=== PATIENT | female | born 1975 | race Caucasian/White ===

== ENCOUNTER 2021-05-26 14:37 | Emergency (ER) | payer OTHER ==
[~2021-05-26] VITALS: Ht 167.7 cm; Wt 124.4 kg
[2021-05-26 14:52] VITALS: BP 159/86
--- NOTE | 2021-05-26 14:59 | ED Back Pain ---
General Chief Complaint: Abdominal/GI Problems Stated Complaint: RIGHT SIDE ABDOMINAL PAIN History of Present Illness Date Seen by Provider: May 26, 2021 Time Seen by Provider: 14:50 Initial Comments 45-year-old female with sudden onset right low back pain about 1 hour prior to arrival. No abdominal pain, but nausea and vomiting associated with the pain. No recent illness, fever or chills. No diarrhea. No history of kidney stones. No urinary symptoms, increased frequency or dysuria. Allergies and Home Medications Allergies Coded Allergies: No Known Drug Allergies (Unverified , 05/26/21) Home Medications Ibuprofen 800 Mg Tablet, 800 MG PO Q8H PRN for PAIN Prescribed by: KARMA DYKES on 05/26/21 1545 Sulfamethoxazole/Trimethoprim 1 Each Tablet, 1 EACH PO BID Prescribed by: KARMA DYKES on 05/26/21 1545 Tamsulosin HCl 0.4 Mg Cap, 0.4 MG PO DAILY Prescribed by: KARMA DYKES on 05/26/21 1545 Patient Home Medication List Home Medication List Reviewed: Yes Review of Systems Constitutional: No fever, No malaise, No weakness Respiratory: No cough, No short of breath Cardiovascular: No chest pain, No edema, No palpitations Gastrointestinal: No abdominal pain, No diarrhea; nausea, vomiting Genitourinary: see HPI; No decreased output, No dysuria, No frequency, No hematuria, No hesitancy, No incontinence, No nocturia, No pain Musculoskeletal: back pain; No joint pain, No muscle pain, No neck pain Skin: No change in color, No lesions, No lumps, No rash Past Ydx[place]-G[place]nba-Awdfqn Hx Past Med/Social Hx: Reviewed Nursing Past Med/Soc Hx Physical Exam Vital Signs Vital Signs - First Documented 05/26/21 14:52 Temp 36.6 Pulse 83 Resp 18 B/P (MAP) 159/86 (110) Pulse Ox 98 O2 Delivery Room Air Capillary Refill : Height, Weight, BMI Height: '" Weight: lbs. oz. kg; BMI Method: General Appearance: No Apparent Distress, WD/WN Cardiovascular: Regular Rate, Rhythm, No Edema, No JVD Respiratory: Chest Non Tender, Lungs Clear, Normal Breath Sounds, No Accessory Muscle Use Gastrointestinal: Normal Bowel Sounds, Non Tender, Soft; No Distended, No Guarding, No Rebound, No Tenderness Back: CVA Tenderness (R), Muscle Spasm; No Vertebral Tenderness Extremity: Normal Capillary Refill, Non Tender Neurologic/Psychiatric: Alert, Oriented x3, No Motor/Sensory Deficits Progress/Results/Core Measures Results/Orders Lab Results Laboratory Tests Test 05/26/21 14:43 05/26/21 14:56 Range/Units Urine Color YELLOW Urine Clarity CLOUDY Urine pH 6.0 5-9 Urine Specific [place] 1.025 H 1.016-1.022 Urine Protein NEGATIVE NEGATIVE Urine Glucose (UA) NEGATIVE NEGATIVE Urine Ketones TRACE H NEGATIVE Urine Nitrite NEGATIVE NEGATIVE Urine Bilirubin NEGATIVE NEGATIVE Urine Urobilinogen 0.2 < = 1.0 MG/DL Urine Leukocyte Esterase 2+ H NEGATIVE Urine RBC (Auto) 3+ H NEGATIVE Urine RBC >100 H /HPF Urine WBC /HPF Urine Squamous Epithelial Cells 10-25 H /HPF Urine Crystals NONE /LPF Urine Bacteria MODERATE H /HPF Urine Casts NONE /LPF Urine Mucus NO /LPF Urine Culture Indicated YES White Blood Count 12.5 H 4.3-11.0 10^3/uL Red Blood Count 4.96 4.35-5.85 10^6/uL Hemoglobin 14.1 11.5-16.0 G/DL Hematocrit 42 35-52 % Mean Corpuscular Volume 85 80-99 FL Mean Corpuscular Hemoglobin 28 25-34 PG Mean Corpuscular Hemoglobin Concent 34 32-36 G/DL Red Cell Distribution Width 13.2 10.0-14.5 % Platelet Count 365 130-400 10^3/uL Mean Platelet Volume 10.0 7.4-10.4 FL Immature Granulocyte % (Auto) 0 % Neutrophils (%) (Auto) 79 H 42-75 % Lymphocytes (%) (Auto) 13 12-44 % Monocytes (%) (Auto) 6 0-12 % Eosinophils (%) (Auto) 1 0-10 % Basophils (%) (Auto) 1 0-10 % Neutrophils # (Auto) 9.8 H 1.8-7.8 X 10^3 Lymphocytes # (Auto) 1.7 1.0-4.0 X 10^3 Monocytes # (Auto) 0.8 0.0-1.0 X 10^3 Eosinophils # (Auto) 0.1 0.0-0.3 10^3/uL Basophils # (Auto) 0.1 0.0-0.1 10^3/uL Immature Granulocyte # (Auto) 0.1 0.0-0.1 10^3/uL Sodium Level 137 135-145 MMOL/L Potassium Level 4.2 3.6-5.0 MMOL/L Chloride Level 102 98-107 MMOL/L Carbon Dioxide Level 23 21-32 MMOL/L Anion Gap 12 5-14 MMOL/L Blood Urea Nitrogen 15 7-18 MG/DL Creatinine 0.95 0.60-1.30 MG/DL Estimat Glomerular Filtration Rate > 60 BUN/Creatinine Ratio 16 Glucose Level 132 H 70-105 MG/DL Calcium Level 9.6 8.5-10.1 MG/DL Corrected Calcium 9.2 8.5-10.1 MG/DL Total Bilirubin 0.4 0.1-1.0 MG/DL Aspartate Amino Transf (AST/SGOT) 15 5-34 U/L Alanine Aminotransferase (ALT/SGPT) 20 0-55 U/L Alkaline Phosphatase 108 40-136 U/L Total Protein 7.6 6.4-8.2 GM/DL Albumin 4.5 3.2-4.5 GM/DL My Orders Orders - ROVENSTKARMA LIMON DO Ed Iv/Invasive Line Start (05/26/21 14:55) Ct Abdomen/Pelvis Wo (05/26/21 14:55) Cbc With Automated Diff (05/26/21 14:55) Comprehensive Metabolic Panel (05/26/21 14:55) Urinalysis (05/26/21 14:55) Ketorolac Injection (Toradol Injection) (05/26/21 15:00) Ondansetron Injection (Zofran Injectio (05/26/21 15:00) Ns Iv 1000 Ml (Sodium Chloride 0.9%) (05/26/21 15:00) Urine Culture (05/26/21 14:43) Medications Given in ED Current Medications Medications Dose Ordered Sig/[place] Route Start Time Stop Time Status Last Admin Dose Admin Ketorolac Tromethamine 30 mg ONCE ONCE IVP 05/26/21 15:00 05/26/21 15:01 DC 05/26/21 15:05 30 MG Ondansetron HCl 4 mg ONCE ONCE IVP 05/26/21 15:00 05/26/21 15:01 DC 05/26/21 15:05 4 MG Vital Signs/I&O 05/26/21 14:52 Temp 36.6 Pulse 83 Resp 18 B/P (MAP) 159/86 (110) Pulse Ox 98 O2 Delivery Room Air Diagnostic Imaging Diagonstic Imaging: CT Comments HISTORY: R flank and CVA pain COMPARISON: CT abdomen and pelvis 09/23/2013. FINDINGS: Lung bases: The lung bases are clear. Solid organs: The liver is normal. The gallbladder is normal. There is no biliary ductal dilation. Pancreas is normal. Spleen is normal. Adrenal glands are normal. There is a 0.4 cm calculus within the distal right ureter at the ureterovesicular junction. This results in mild right hydronephrosis. The left kidney is unremarkable without hydronephrosis. Bowel: The stomach and small bowel are normal without obstruction. The colon and appendix are normal. Peritoneum: There is no intraperitoneal free fluid or free air. No suspicious lymphadenopathy. Vasculature: Normal without aneurysm. Musculoskeletal: Degenerative changes of the spine without suspicious osseous lesion or compression fracture. Pelvis: The uterus and adnexa are normal. The urinary bladder is normal. IMPRESSION: A 0.4 cm calculus within the distal right ureter at the ureterovesicular junction which results in mild right hydronephrosis. Dictated on workstation # [id number] Dict: 05/26/21 1524 Trans: 05/26/21 1527 [facility] [id number] Interpreted by: DENTON ALLRED DO Electronically signed by: Departure Impression Primary Impression: Ureterolithiasis Additional Impression: Hydronephrosis Qualified Codes: N13.2 - Hydronephrosis with renal and ureteral calculous obstruction Disposition: 01 HOME, SELF-CARE Condition: Improved Departure-Patient Inst. Decision time for Depature: 15:43 Referrals: HERRERA ELMORE MD (PCP/Family) Primary Care Physician SUZI JUDGE MD Patient Instructions: Kidney Stone Diet, Kidney Stone, Adult ED Add. Discharge Instructions: Call Dr Judge's office for follow up care in 1 to 2 days if not improving or worse. All discharge instructions reviewed with patient and/or family. Voiced understanding. Scripts Ibuprofen (Ibuprofen) 800 Mg Tablet 800 MG PO Q8H PRN for PAIN, #30 TAB 0 Refills Prov: KARMA DYKES DO 05/26/21 Tamsulosin HCl (Flomax) 0.4 Mg Cap 0.4 MG PO DAILY, #5 CAP Prov: KARMA DYKES DO 05/26/21 Sulfamethoxazole/Trimethoprim (Bactrim Ds Tablet) 1 Each Tablet 1 EACH PO BID, #10 TAB 0 Refills Prov: KARMA DYKES DO 05/26/21 KARMA DYKES DO May 26, 2021 14:59
[2021-05-26] MEDS ORDERED: NS IV 1000 ML 1,000 ML IV SCH (15:00)
[2021-05-26] MEDS ORDERED: KETOROLAC 30 MG/ML VIAL IVP ONE (15:00)
[2021-05-26] MEDS ORDERED: ONDANSETRON 4 MG/2 ML (SDV) Z0FRAN IVP ONE (15:00)
[2021-05-26 15:01] LABS: BILIRUBIN,URINE NEGATIVE (NEGATIVE); CLARITY,URINE CLOUDY; COLOR,URINE YELLOW; GLUCOSE, URINE (UA) NEGATIVE (NEGATIVE); KETONES,URINE TRACE (NEGATIVE); LEUKOCYTE ESTERASE ,URINE 2+ (NEGATIVE); NITRITE,URINE NEGATIVE (NEGATIVE); PROTEIN,URINE NEGATIVE (NEGATIVE)
[2021-05-26 15:02] LABS: BACTERIA,URINE MODERATE /HPF; RBC,URINE >100 /HPF
[2021-05-26 15:04] LABS: BASOPHILS # (AUTO) 0.1 10^3/uL (0.0-0.1); BASOPHILS % (AUTO) 1 % (0-10); EOSINOPHILS # (AUTO) 0.1 10^3/uL (0.0-0.3); EOSINOPHILS % (AUTO) 1 % (0-10); HEMATOCRIT 42 % (35-52); HEMOGLOBIN 14.1 G/DL (11.5-16.0); LYMPHOCYTES # (AUTO) 1.7 X 10^3 (1.0-4.0); LYMPHOCYTES % (AUTO) 13 % (12-44); MEAN CORPUSCULAR HEMOGLOBIN 28 PG (25-34); MEAN CORPUSCULAR HGB CONC 34 G/DL (32-36); MEAN CORPUSCULAR VOLUME 85 FL (80-99); MONOCYTES # (AUTO) 0.8 X 10^3 (0.0-1.0); MONOCYTES % (AUTO) 6 % (0-12); NEUTROPHILS # (AUTO) 9.8 X 10^3 (1.8-7.8); NEUTROPHILS % (AUTO) 79 % (42-75); PLATELET COUNT 365 10^3/uL (130-400); WHITE BLOOD COUNT 12.5 10^3/uL (4.3-11.0)
[2021-05-26] MEDS ORDERED: NS 100 ML (IVPB) BAG IV ONE (15:15)
[2021-05-26] MEDS ORDERED: HOLD METFORMIN - RECEIVED CONTRAST 20 ML VIAL IV SCH (15:15)
[2021-05-26] MEDS ORDERED: CATHETER FLUSH 10 ML SYR IV PRN (15:15)
[2021-05-26] MEDS ORDERED: IOHEXOL 350 MG/ML 100 ML (OMNIPAQUE 350) VIAL IV ONE (15:15)
[2021-05-26 15:23] LABS: ALANINE AMINOTRANSFERASE 20 U/L (0-55); ALBUMIN 4.5 GM/DL (3.2-4.5); ALKALINE PHOSPHATASE 108 U/L (40-136); BILIRUBIN,TOTAL 0.4 MG/DL (0.1-1.0); BUN/CREATININE RATIO 16; CALCIUM 9.6 MG/DL (8.5-10.1); CARBON DIOXIDE 23 MMOL/L (21-32); CHLORIDE 102 MMOL/L (98-107); CREATININE SERUM 0.95 MG/DL (0.60-1.30); GFR ESTIMATED > 60; GLUCOSE 132 MG/DL (70-105); POTASSIUM 4.2 MMOL/L (3.6-5.0); SODIUM 137 MMOL/L (135-145); TOTAL PROTEIN 7.6 GM/DL (6.4-8.2)
--- NOTE | 2021-05-26 15:28 | Diagnostic Imaging Report ---
EXAMINATION: CT abdomen and pelvis without contrast. TECHNIQUE: Multiple contiguous axial images were obtained through the abdomen and pelvis without the use of intravenous contrast. All CT scans use one or more of the following dose optimizing techniques: automated exposure control, MA and/or KvP adjustment based on patient size and exam type or iterative reconstruction. HISTORY: R flank and CVA pain COMPARISON: CT abdomen and pelvis 09/23/2013. FINDINGS: Lung bases: The lung bases are clear. Solid organs: The liver is normal. The gallbladder is normal. There is no biliary ductal dilation. Pancreas is normal. Spleen is normal. Adrenal glands are normal. There is a 0.4 cm calculus within the distal right ureter at the ureterovesicular junction. This results in mild right hydronephrosis. The left kidney is unremarkable without hydronephrosis. Bowel: The stomach and small bowel are normal without obstruction. The colon and appendix are normal. Peritoneum: There is no intraperitoneal free fluid or free air. No suspicious lymphadenopathy. Vasculature: Normal without aneurysm. Musculoskeletal: Degenerative changes of the spine without suspicious osseous lesion or compression fracture. Pelvis: The uterus and adnexa are normal. The urinary bladder is normal. IMPRESSION: A 0.4 cm calculus within the distal right ureter at the ureterovesicular junction which results in mild right hydronephrosis. Dictated by: Dictated on workstation # [id number]
[2021-05-26] MEDS ORDERED: IBUP-1780 PO (15:45)
[2021-05-26] MEDS ORDERED: SULF1TAB35 PO (15:45)
[2021-05-26] MEDS ORDERED: TMSL.4C PO (15:45)
== END 2021-05-26 15:48 | disposition home or self-care (01) ==
LOC: EDUNIT# 14:37 → ER FS 14:39
DX: N13.2 Hydronephrosis with renal and ureteral calculous obstruction (principal)
CPT/HCPCS: 36415; 74176; 80053; 81000; 85025; 87088